=== PATIENT | male | born 2000 | race African-American/Black ===

== ENCOUNTER 2024-05-25 09:25 | Emergency (ER) | payer OTHER, SELFPAY ==
[~2024-05-25] VITALS: Ht 180.3 cm; Wt 103.1 kg
[~2024-05-25 09:25] MED LIST: DOXY100T PO
[2024-05-25] MEDS ORDERED: BACT800T5 PO (13:01)
[2024-05-25] MEDS ORDERED: IBUP-1022 PO (13:01)
[2024-05-25 13:11] VITALS: BP 132/72; TEMP 96.5; O2SAT 97
[2024-05-25 13:23] LABS: KETONE, URINE AUTO RFX NEGATIVE (NEGATIVE); LEUKOCYTE ESTERASE UR AUTO RFX NEGATIVE (NEGATIVE); NITRITE, URINE AUTO RFX NEGATIVE (NEGATIVE); RBC, URINE AUTO RFX 1 /HPF (0-3); SQUAM EPITHELIAL CELL UR AURFX 1 /HPF (0-6); WBC, URINE AUTO RFX 2 /HPF (0-3)
[2024-05-26 13:12] LABS: Trichomonas vaginalis (AMP) NOT DETECTED (NEGATIVE)
[2024-05-26 13:36] LABS: GC DNA AMPLIFICATION NEGATIVE (NEGATIVE)
== END 2024-05-25 13:12 | disposition home or self-care (01) ==
LOC: M ED 09:25
DX: N45.2 Orchitis (principal); N45.1 Epididymitis; Z86.19 Personal history of other infectious and parasitic diseases